=== PATIENT | male | born 1995 | race Caucasian/White ===

== ENCOUNTER 2018-07-04 08:52 | Emergency (ER) | payer MEDICAID ==
[~2018-07-04] VITALS: Ht 172.7 cm; Wt 88.5 kg
--- NOTE | 2018-07-04 09:30 | NUR ---
Patient discharged to home in stable conditon. Written and verbal after care instructions given. Patient verbalizes understanding of instructions.
== END 2018-07-04 09:38 | disposition home or self-care (01) ==
LOC: ER 08:52
DX: H66.92 Otitis media, unspecified, left ear (principal)
CPT/HCPCS: A4663